=== PATIENT | female | born 1950 | race Caucasian/White ===

== ENCOUNTER 2018-11-18 12:09 | Outpatient (CLI) | payer MEDICARE ==
--- NOTE | 2018-11-18 13:55 | RAD ---
CHEST TWO VIEWS: HISTORY: Pain. Cough. COMPARISON: None. FINDINGS: Normal cardiac silhouette. Lungs and pleural spaces are clear. No pneumothorax or osseous abnormali ties. IMPRESSION: No acute cardiopulmonary process. POS: H
== END 2018-11-18 12:10 | disposition home or self-care (01) ==
LOC: SCSRAD 12:09
PROVIDERS: ATTEND Family Medicine
DX: R07.9 Chest pain, unspecified (principal); R05 Cough
CPT/HCPCS: 36415; 71046; 84484; 85025

== ENCOUNTER 2019-10-11 08:04 | Outpatient (CLI) | payer MEDICARE ==
--- NOTE | 2019-10-11 08:38 | BD ---
EXAM: DEXA bone density examination HISTORY: 69-year-old postmenopausal female for screening COMPARISON: None FINDINGS: L1--bone mineral density 0.927 g/sq cm; T score -0.6 L2--bone mineral density 1.048 g/sq cm; T score 0.2 L3--bone mineral density 1.023 g/sq cm; T score -0.6 L4--bone mineral density 0.964 g/sq cm; T score -0.9 Total L1-L4--bone mineral density 0.992 g/sq cm; T score -0.5 Left femoral neck--bone mineral density0.701; T score -1.3 Total proximal left femur--bone mineral density 1.027; T score 0.7 IMPRESSION: Osteopenia This patient has a 10 year WHO fracture risk of a major osteoporotic fracture of 8.9% and of a hip fracture of 1.1%.
--- NOTE | 2019-10-16 14:20 | MMO ---
Bilateral MAMMO Bilat Screen [facility]. CLINICAL HISTORY: Patient is 69 years old and is seen for screening. The patient has no family history of breast cancer. The patient has no personal history of cancer. The patient has a history of left Excisional Biopsy - CLOGGED DUCT REMOVED. VIEWS: The views performed were: bilateral craniocaudal with tomosynthesis and bilateral mediolateral oblique with tomosynthesis. FILMS COMPARED: The present examination has been compared to prior imaging studies performed at [facility] on 01/08/2016 and 01/11/2017. This study has been interpreted with the assistance of computer-aided detection. MAMMOGRAM FINDINGS: There are scattered fibroglandular densities. There are no suspicious masses, suspicious calcifications, or new areas of architectural distortion. IMPRESSION: THERE IS NO MAMMOGRAPHIC EVIDENCE OF MALIGNANCY. A ROUTINE FOLLOW-UP MAMMOGRAM IN 1 YEAR IS RECOMMENDED. THE RESULTS OF THIS EXAM WERE SENT TO THE PATIENT. ACR BI-RADS Category 1 - Negative MAMMOGRAPHY NOTE: 1. A negative mammogram report should not delay a biopsy if a dominant of clinically suspicious mass is present. 2. Approximately 10% to 15% of breast cancers are not detected by mammography. 3. Adenosis and dense breasts may obscure an underlying neoplasm. Reported by: ESTEFANÍA VAZQUEZ MD Electonically Signed: [id number]
== END 2019-10-11 08:05 | disposition home or self-care (01) ==
LOC: BICMAMMO 08:04
PROVIDERS: ATTEND Family Medicine
DX: Z12.31 Encounter for screening mammogram for malignant neoplasm of breast (principal); Z13.820 Encounter for screening for osteoporosis; M85.852 Other specified disorders of bone density and structure, left thigh
CPT/HCPCS: 77063; 77067; 77080

== ENCOUNTER 2020-01-18 09:45 | Outpatient (CLI) | payer MEDICARE ==
--- NOTE | 2020-01-18 10:21 | RAD ---
EXAM: Chest PA and lateral: HISTORY: Dyspnea COMPARISON: 11/18/2018 FINDINGS: Heart: Normal cardiac silhouette Aorta: Unremarkable Pulmonary vessels: Normal Costophrenic angles: Costophrenic angles are clear. Lungs: No consolidation or masses. Pneumothorax: No pneumothorax Osseous structures: No osseous abnormalities IMPRESSION: No acute cardiopulmonary process.
== END 2020-01-18 09:46 | disposition home or self-care (01) ==
LOC: RAD 09:45
PROVIDERS: ATTEND Internal Medicine Critical Care Medicine
DX: R06.00 Dyspnea, unspecified (principal)
CPT/HCPCS: 71046

== ENCOUNTER 2020-10-16 08:05 | Outpatient (CLI) | payer MEDICARE ==
--- NOTE | 2020-10-16 08:36 | MMO ---
Bilateral MAMMO Bilat Screen [facility]. CLINICAL HISTORY: Patient is 70 years old and is seen for screening. The patient has no family history of breast cancer. The patient has no personal history of cancer. The patient has a history of left Excisional Biopsy - CLOGGED DUCT REMOVED. VIEWS: The views performed were: bilateral craniocaudal with tomosynthesis and bilateral mediolateral oblique with tomosynthesis. FILMS COMPARED: The present examination has been compared to prior imaging studies performed at [facility] on 10/11/2019, and at [facility] on 01/08/2016 and 01/11/2017. This study has been interpreted with the assistance of computer-aided detection. MAMMOGRAM FINDINGS: There are scattered fibroglandular densities. There are stable benign appearing calcifications seen in both breasts. There are no suspicious masses, suspicious calcifications, or new areas of architectural distortion. IMPRESSION: THERE IS NO MAMMOGRAPHIC EVIDENCE OF MALIGNANCY. A ROUTINE FOLLOW-UP MAMMOGRAM IN 1 YEAR IS RECOMMENDED. THE RESULTS OF THIS EXAM WERE SENT TO THE PATIENT. ACR BI-RADS Category 2 - Benign finding MAMMOGRAPHY NOTE: 1. A negative mammogram report should not delay a biopsy if a dominant of clinically suspicious mass is present. 2. Approximately 10% to 15% of breast cancers are not detected by mammography. 3. Adenosis and dense breasts may obscure an underlying neoplasm. Reported by: JOSTIN BROWN MD Electonically Signed: [id number]
== END 2020-10-16 08:06 | disposition home or self-care (01) ==
LOC: BICMAMMO 08:05
PROVIDERS: ATTEND Family Medicine
DX: Z12.31 Encounter for screening mammogram for malignant neoplasm of breast (principal)
CPT/HCPCS: 77063; 77067

== ENCOUNTER 2021-06-19 13:11 | Outpatient (CLI) | payer MEDICARE | END 2021-06-19 13:12 | disposition home or self-care (01) | LOC: BICULT 13:11 | PROVIDERS: ATTEND Family Medicine | DX: I83.891 Varicose veins of right lower extremity with other complications (principal); M79.604 Pain in right leg ==

== ENCOUNTER 2021-06-25 10:56 | Outpatient (CLI) | payer MEDICARE | END 2021-06-25 10:57 | disposition home or self-care (01) | LOC: BICRAD 10:56 | PROVIDERS: ATTEND Family Medicine | DX: M25.561 Pain in right knee (principal); M17.11 Unilateral primary osteoarthritis, right knee; M11.261 Other chondrocalcinosis, right knee; I83.811 Varicose veins of right lower extremity with pain ==

== ENCOUNTER 2022-03-13 07:57 | Outpatient (CLI) | payer MEDICARE | END 2022-03-13 07:58 | disposition home or self-care (01) | LOC: BICMAMMO 07:57 | PROVIDERS: ATTEND Family Medicine | DX: Z12.31 Encounter for screening mammogram for malignant neoplasm of breast (principal) | CPT/HCPCS: 77063; 77067 ==

== ENCOUNTER 2023-06-20 16:06 | Emergency (ER) | payer MEDICARE ==
[2023-06-20] MEDS ORDERED: Cyclobenzaprine 10 MG TAB ONE (17:51)
[2023-06-20] MEDS ORDERED: Ketorolac Tromethamine 30 MG/ML VIAL ONE (17:51)
[2023-06-20] MEDS ORDERED: Lidocaine 4% Patch TD SCH (19:00)
[2023-06-21] MEDS ORDERED: Transdermal Patch Removal TOP SCH (08:00)
== END 2023-06-20 19:32 | disposition home or self-care (01) ==
LOC: ERS 16:06
DX: M54.32 Sciatica, left side (principal); M53.87 Other specified dorsopathies, lumbosacral region
CPT/HCPCS: 36415; 72100; 85379; 96372; 99283; J1885

== ENCOUNTER 2023-09-14 09:57 | Outpatient (CLI) | payer MEDICARE | END 2023-09-14 09:58 | disposition home or self-care (01) | LOC: BICRAD 09:57 | PROVIDERS: ATTEND Family Medicine | DX: M62.81 Muscle weakness (generalized) (principal); M47.816 Spondylosis without myelopathy or radiculopathy, lumbar region; M46.06 Spinal enthesopathy, lumbar region; M89.38 Hypertrophy of bone, other site | CPT/HCPCS: 72100 ==

== ENCOUNTER 2023-09-17 07:39 | Outpatient (CLI) | payer MEDICARE | END 2023-09-17 07:40 | disposition home or self-care (01) | LOC: BICMAMMO 07:39 | PROVIDERS: ATTEND Family Medicine | DX: Z12.31 Encounter for screening mammogram for malignant neoplasm of breast (principal) | CPT/HCPCS: 77063; 77067 ==

== ENCOUNTER 2025-08-15 13:47 | Outpatient (CLI) | payer MEDICARE | END 2025-08-15 13:48 | disposition home or self-care (01) | LOC: BICMAMMO 13:47 | PROVIDERS: ATTEND Family Medicine | DX: Z12.31 Encounter for screening mammogram for malignant neoplasm of breast (principal) | CPT/HCPCS: 77063; 77067 ==

== ENCOUNTER 2025-08-20 10:31 | Outpatient (CLI) | payer MEDICARE | END 2025-08-20 10:32 | disposition home or self-care (01) | LOC: BICRAD 10:31 | PROVIDERS: ATTEND Family Medicine | DX: M19.042 Primary osteoarthritis, left hand (principal); R05.3 Chronic cough; M21.932 Unspecified acquired deformity of left forearm; M18.12 Unilateral primary osteoarthritis of first carpometacarpal joint, left hand; R22.1 Localized swelling, mass and lump, neck | CPT/HCPCS: 36415; 71046; 80053; 85025 ==

== ENCOUNTER 2025-08-28 07:55 | Outpatient (CLI) | payer MEDICARE ==
[2025-08-28] MEDS ORDERED: Iopamidol-370 76% 500 ML MDV (1 ML CHARGE) ONE (09:05)
== END 2025-08-28 07:56 | disposition home or self-care (01) ==
LOC: CT 07:55
PROVIDERS: ATTEND Family Medicine
DX: R22.1 Localized swelling, mass and lump, neck (principal); E04.2 Nontoxic multinodular goiter
CPT/HCPCS: 70496; 70498

== ENCOUNTER 2025-09-10 12:48 | Outpatient (CLI) | payer MEDICARE | END 2025-09-10 12:49 | disposition home or self-care (01) | LOC: CT 12:48 | PROVIDERS: ATTEND Family Medicine | DX: R05.3 Chronic cough (principal); R91.8 Other nonspecific abnormal finding of lung field | CPT/HCPCS: 71250 ==